=== PATIENT | female | born 1995 | race African-American/Black ===

== ENCOUNTER → 2016-06-02 | Outpatient (CLI) | payer OTHER ==
[2016-06-02 20:07] LABS: ALBUMIN 3.9 GM/DL (3.2-5.2); ALBUMIN/GLOBULIN RATIO 0.98 (1.00-1.93); ALKALINE PHOSPHATASE 91 U/L (45-117); ALT/SGPT 15 U/L (12-78); ANION GAP 8 MEQ/L (8-16); AST/SGOT 9 U/L (15-37); BILIRUBIN,TOTAL 0.5 MG/DL (0.2-1.0); BLOOD UREA NITROGEN 3 MG/DL (7-18); CALCIUM LEVEL 8.9 MG/DL (8.5-10.1); CARBON DIOXIDE LEVEL 27 MEQ/L (21-32); CHLORIDE LEVEL 105 MEQ/L (98-107); CREATININE FOR GFR 0.76 MG/DL (0.55-1.02); GLOMERULAR FILTRATION RATE > 60.0 (>60); GLUCOSE, FASTING 93 MG/DL (70-105); MAGNESIUM LEVEL 2.1 MG/DL (1.8-2.4); POTASSIUM SERUM 3.9 MEQ/L (3.5-5.1); SODIUM LEVEL 140 MEQ/L (136-145); TOTAL PROTEIN 7.9 GM/DL (6.4-8.2)
[2016-06-02 20:37] LABS: BASO % 0.4 % (0.0-1.0); EOS # 0.1 K/mm3 (0.0-0.50); EOS % 3.2 % (0.0-3.0); LARGE UNSTAINED CELL # 0.1 K/mm3 (0.0-0.4); LARGE UNSTAINED CELL % 2.6 % (0.0-4.0); LYMPH # 1.6 K/mm3 (1.5-6.5); LYMPH % 39.9 % (24.0-44.0); MEAN CORPUSCULAR HEMOGLOBIN 24.3 pg (27.0-33.0); MEAN CORPUSCULAR VOLUME 81.1 fl (80.0-96.0); MONO # 0.3 K/mm3 (0.0-0.8); MONO % 7.2 % (0.0-5.0); NEUTROPHILS # 1.9 K/mm3 (1.8-7.7); NEUTROPHILS % 46.8 % (36.0-66.0); PLATELET COUNT, AUTOMATED 370 k/mm3 (150-450); RED CELL DISTRIBUTION WIDTH 15.9 % (11.5-14.5)
== END ==
LOC: M WUC 11:45
PROVIDERS: ATTEND Nurse Practitioner Family
DX: R00.2 Palpitations (principal); D64.9 Anemia, unspecified

== ENCOUNTER → 2016-09-09 | Outpatient (CLI) | payer OTHER ==
--- NOTE | 2016-09-09 16:00 | REP ---
ULTRASOUND RIGHT BREAST: Real-time sonographic evaluation of the right breast is performed. There is a reported palpable abnormality in the region of 4 o'clock of the right breast. At that location is a hypoechoic nodule with internal blood flow with duplex Doppler evaluation. The solid nodule measures 1.1 x 1.3 x 1.9 cm. Some of the margins appear mildly irregular. I would recommend ultrasound guided biopsy. IMPRESSION: Solid nodule 4 o'clock position right breast. Recommend ultrasound guided biopsy. ACR 4 suspicious. Signed by Milton Scherer MD 09/09/2016 07:51 P
== END ==
LOC: M RAD 14:29
PROVIDERS: ATTEND Nurse Practitioner Family
DX: N63 Unspecified lump in breast (principal)

== ENCOUNTER 2016-09-14 17:21 | Emergency (ER) | payer OTHER ==
[~2016-09-14] VITALS: Ht 177.8 cm; Wt 81.6 kg
[2016-09-14] MEDS ORDERED: ZOLO100T PO (17:34)
[2016-09-14] MEDS ORDERED: LAMO10TA PO (17:35)
[2016-09-14] MEDS ORDERED: NS 1,000 ML IV ONE (18:00)
[2016-09-14] MEDS ORDERED: KETOROLAC 30 MG/ML VIAL (J1885) IV ONE (18:00)
[2016-09-14] MEDS ORDERED: ONDANSETRON 4MG/2ML VIAL (J2405) IV ONE (18:00)
[2016-09-14] MEDS ORDERED: MORPHINE 2 MG/ML 1ML SYRINGE IV ONE (18:00)
[2016-09-14 18:52] LABS: CONTROL LINE UCG INT CTR LINE PRESENT
--- NOTE | 2016-09-14 19:00 | REPUSA ---
CLINICAL HISTORY: Pelvic pain. TECHNIQUE: Realtime sonographic images were obtained in multiple projections. TA approach. Patient i s not sexually active so no TV study is done. COMMENTS: The uterus measures 6.1 x 3.6 x 4.1. The endometrial echo pattern is within normal limits measuring 5.0 mm. The right ovary measures 2.8 x 1.9 x 1.8. RI is 0.43. The left ovary measures 2.5 x 2.0 x 1.7. RI is 0.54. Both ovaries are free of solid or cystic mass. There is no evidence for abnormal vascularity. IMPRESSION: No acute pathology. No evidence of torsion. Thank you for your kind referral of this patient. We appreciate the opportunity to participate in th is patient's care.
[2016-09-14 19:01] LABS: BASO % 0.3 % (0.0-1.0); EOS # 0.1 K/mm3 (0.0-0.50); EOS % 1.4 % (0.0-3.0); LARGE UNSTAINED CELL # 0.1 K/mm3 (0.0-0.4); LARGE UNSTAINED CELL % 1.7 % (0.0-4.0); LYMPH # 1.5 K/mm3 (1.5-6.5); LYMPH % 16.3 % (24.0-44.0); MEAN CORPUSCULAR HEMOGLOBIN 23.4 pg (27.0-33.0); MEAN CORPUSCULAR HGB CONC 30.7 g/dl (32.0-36.5); MONO # 0.4 K/mm3 (0.0-0.8); MONO % 4.8 % (0.0-5.0); NEUTROPHILS # 6.4 K/mm3 (1.8-7.7); NEUTROPHILS % 75.5 % (36.0-66.0); PLATELET COUNT, AUTOMATED 364 k/mm3 (150-450); RED CELL DISTRIBUTION WIDTH 17.2 % (11.5-14.5); WHITE BLOOD COUNT 8.5 K/mm3 (4.0-10.0)
[2016-09-14 21:56] LABS: INR 1.05
[2016-09-14 22:07] LABS: ALBUMIN 3.6 GM/DL (3.2-5.2); ALBUMIN/GLOBULIN RATIO 0.95 (1.00-1.93); ALKALINE PHOSPHATASE 99 U/L (45-117); ALT/SGPT 15 U/L (12-78); ANION GAP 6 MEQ/L (8-16); AST/SGOT 11 U/L (15-37); BILIRUBIN,DIRECT 0.1 MG/DL (0.0-0.2); BILIRUBIN,TOTAL 0.6 MG/DL (0.2-1.0); BLOOD UREA NITROGEN 4 MG/DL (7-18); CALCIUM LEVEL 8.2 MG/DL (8.5-10.1); CARBON DIOXIDE LEVEL 24 MEQ/L (21-32); CHLORIDE LEVEL 110 MEQ/L (98-107); CREATININE FOR GFR 0.68 MG/DL (0.55-1.02); GLOMERULAR FILTRATION RATE > 60.0 (>60); GLUCOSE, FASTING 95 MG/DL (70-105); POTASSIUM SERUM 3.5 MEQ/L (3.5-5.1); SODIUM LEVEL 140 MEQ/L (136-145); TOTAL PROTEIN 7.4 GM/DL (6.4-8.2)
[2016-09-14] MEDS ORDERED: NAPR500T2 PO (22:15)
[2016-09-14 22:21] VITALS: BP 109/77
== END 2016-09-14 22:31 | disposition home or self-care (01) ==
LOC: EDBD 17:21 → M ED 18:16
DX: N94.6 Dysmenorrhea, unspecified (principal); R74.8 Abnormal levels of other serum enzymes; F33.9 Major depressive disorder, recurrent, unspecified; F41.9 Anxiety disorder, unspecified; F90.9 Attention-deficit hyperactivity disorder, unspecified type; F17.210 Nicotine dependence, cigarettes, uncomplicated; Z91.011 Allergy to milk products; Z79.899 Other long term (current) drug therapy
CPT/HCPCS: 76856; 80048; 80076; 81001; 81025; 83605; 83690; 84703; 85025; 85610; 85730; 87491; 87591; 93041; 93976; 96374; 96375; 99284; J1885; J2405

== ENCOUNTER → 2016-10-02 | Outpatient (REF) | payer OTHER ==
[~2016-10-02] MED LIST: LAMO10TA PO; NAPR500T2 PO; ZOLO100T PO
[2016-10-02 17:17] LABS: PERCENT SATURATION 5.5 % (13.2-37.4)
== END ==
LOC: M LAB REF 16:21
PROVIDERS: ATTEND Nurse Practitioner Family
DX: D64.9 Anemia, unspecified (principal)

== ENCOUNTER → 2016-12-02 | Outpatient (REF) | payer OTHER ==
[~2016-12-02] MED LIST changes: -NAPR500T2 PO; +NAPR500T3 PO; +WELL100T2 PO
[2016-12-02 19:00] LABS: BASO % 0.5 % (0.0-1.0); EOS # 0.2 K/mm3 (0.0-0.50); EOS % 3.8 % (0.0-3.0); LARGE UNSTAINED CELL # 0.1 K/mm3 (0.0-0.4); LARGE UNSTAINED CELL % 2.4 % (0.0-4.0); LYMPH # 2.1 K/mm3 (1.5-6.5); LYMPH % 43.4 % (24.0-44.0); MEAN CORPUSCULAR HEMOGLOBIN 24.8 pg (27.0-33.0); MEAN CORPUSCULAR HGB CONC 30.9 g/dl (32.0-36.5); MEAN CORPUSCULAR VOLUME 80.3 fl (80.0-96.0); MONO # 0.3 K/mm3 (0.0-0.8); MONO % 5.4 % (0.0-5.0); NEUTROPHILS % 44.4 % (36.0-66.0); PLATELET COUNT, AUTOMATED 456 k/mm3 (150-450); WHITE BLOOD COUNT 4.6 K/mm3 (4.0-10.0)
== END ==
LOC: M LAB REF 17:04
PROVIDERS: ATTEND Nurse Practitioner Family
DX: D50.8 Other iron deficiency anemias (principal)

== ENCOUNTER 2017-01-13 14:31 | Emergency (ER) | payer OTHER ==
[~2017-01-13] VITALS: Ht 177.8 cm; Wt 86.3 kg
[~2017-01-13 14:31] MED LIST changes: -WELL100T2 PO
[2017-01-13] MEDS ORDERED: WELL100T2 PO (15:16)
[2017-01-13 17:27] VITALS: BP 116/77
== END 2017-01-13 17:28 | disposition home or self-care (01) ==
LOC: M ED 14:31
DX: S63.502A Unspecified sprain of left wrist, initial encounter (principal); X58.XXXA Exposure to other specified factors, initial encounter; Y92.099 Unspecified place in other non-institutional residence as the place of occurrence of the external cause; Y93.9 Activity, unspecified; Y99.9 Unspecified external cause status; F32.9 Major depressive disorder, single episode, unspecified; F41.9 Anxiety disorder, unspecified; D64.9 Anemia, unspecified; Z79.899 Other long term (current) drug therapy; E73.9 Lactose intolerance, unspecified

== ENCOUNTER → 2017-02-17 | Outpatient (REF) | payer OTHER ==
[~2017-02-17] MED LIST changes: +WELL100T2 PO
[2017-02-17 14:19] LABS: BASO % 0.6 % (0.0-1.0); EOS # 0.1 10^3/uL (0.0-0.50); EOS % 2.2 % (0.0-3.0); IMMATURE GRANULOCYTE % 0.2 % (0-0); LYMPH # 1.9 10^3/uL (1.5-6.5); LYMPH % 35.6 % (24.0-44.0); MEAN CORPUSCULAR HGB CONC 30.8 g/dl (32.0-36.5); MEAN CORPUSCULAR VOLUME 84.5 fl (80.0-96.0); MONO # 0.4 10^3/uL (0.0-0.8); MONO % 7.5 % (0.0-5.0); NEUTROPHILS # 2.9 10^3/uL (1.8-7.7); NEUTROPHILS % 53.9 % (36.0-66.0); PLATELET COUNT, AUTOMATED 365 10^3/uL (150-450); RED CELL DISTRIBUTION WIDTH 18.4 % (11.5-14.5); WHITE BLOOD COUNT 5.4 10^3/uL (4.0-10.0)
== END ==
LOC: M LAB REF 12:48
PROVIDERS: ATTEND Nurse Practitioner Family
DX: D50.8 Other iron deficiency anemias (principal)

== ENCOUNTER → 2017-07-14 | Outpatient (REF) | payer OTHER ==
[2017-07-14 19:10] LABS: BASO % 0.2 % (0.0-1.0); EOS # 0.1 10^3/uL (0.0-0.50); EOS % 1.7 % (0.0-3.0); HEMATOCRIT 36.4 % (36.0-47.0); HEMOGLOBIN 11.9 g/dl (12.0-16.0); IMMATURE GRANULOCYTE % 0.2 % (0-3.0); LYMPH # 1.9 10^3/uL (1.5-6.5); LYMPH % 35.7 % (24.0-44.0); MEAN CORPUSCULAR HEMOGLOBIN 27.7 pg (27.0-33.0); MEAN CORPUSCULAR HGB CONC 32.7 g/dl (32.0-36.5); MEAN CORPUSCULAR VOLUME 84.8 fl (80.0-96.0); MONO # 0.5 10^3/uL (0.0-0.8); MONO % 8.6 % (0.0-5.0); NEUTROPHILS # 2.9 10^3/uL (1.8-7.7); NEUTROPHILS % 53.6 % (36.0-66.0); PLATELET COUNT, AUTOMATED 356 10^3/uL (150-450); RED BLOOD COUNT 4.29 10^6/uL (4.00-5.40); RED CELL DISTRIBUTION WIDTH 16.5 % (11.5-14.5); WHITE BLOOD COUNT 5.3 10^3/uL (4.0-10.0)
[2017-07-14 19:21] LABS: IRON (FE) 40 UG/DL (50-170)
== END ==
LOC: M LAB REF 17:39
DX: D64.9 Anemia, unspecified (principal)
CPT/HCPCS: 83540

== ENCOUNTER → 2017-07-30 | Outpatient (REF) | payer OTHER ==
[2017-07-30 21:36] LABS: CHLAMYDIA DNA AMPLIFICATION NEGATIVE (NEGATIVE)
== END ==
LOC: M LAB REF 17:06
DX: Z12.4 Encounter for screening for malignant neoplasm of cervix (principal)
CPT/HCPCS: 87491